=== PATIENT | male | born 1990 | race Caucasian/White ===

== ENCOUNTER 2018-11-18 21:33 | Emergency (ER) | payer OTHER ==
[2018-11-18 22:16] LABS: PLATELET COUNT 293 10^3/uL (150-400)
--- NOTE | 2018-11-18 22:17 | EDPHY ---
H & P Stated Complaint: 7-10 sz while in the skilled nursing. found under a chair per staff, no post ictal pha Time Seen by Provider: 11/18/18 22:00 HPI/ROS: Chief Complaint: Seizure HPI: 28-year-old male being brought in from the skilled nursing for possible seizure. Patient states that he has not been eating or drinking last few days. He was feeling lightheaded so ago off his top bunk. He was sitting in the chair in front of cell. Next seen knew he was on the floor. Uncertain with a a seizure or he had a syncopal episode. Patient was not confused afterwards per bystanders. There is some report he had 7-10 seizures today however the patient is reporting this. I do not have any cooperating information otherwise. Patient denies seizures in the past. No medical problems. No fevers or chills. No cough. He did his head on his bunk 2 days ago. Did not have a loss of consciousness at that time. ROS: 10 systems were reviewed and were negative except those elements noted in the HPI. PMH: Inactive TB Social History: Positive smoking, no alcohol, no recreational drug use Family History: non-contributory Physical Exam: Gen: Awake, Alert, No Distress HEENT: Nose: no rhinorrhea Eyes: PERRLA, EOMI Mouth: Moist mucosa Neck: Supple, no JVD Chest: nontender, lungs clear to auscultation Heart: S1, S2 normal, no murmur Abd: Soft, non-tender, no guarding Back: no CVA tenderness, no midline tenderness Ext: no edema, non-tender Skin: no rash Neuro: CN II-XII intact, Sensation grossly intact, Strength 5/5 in bilateral upper and lower extremities - Personal History Current Tetanus/Diphtheria Vaccine: Yes Current Tetanus Diphtheria and Acellular Pertussis (TDAP): Yes - Medical/Surgical History Hx Asthma: No Hx Chronic Respiratory Disease: No Hx Diabetes: No Hx Cardiac Disease: No Hx Renal Disease: No Hx Cirrhosis: No Hx Alcoholism: No Hx HIV/AIDS: No Hx Splenectomy or Spleen Trauma: No Other PMH: Olayinka MONTOYA AGE 7 FROM VISIT TO [address] [place] [address](NON CONTAGOUS) - Social History Smoking Status: Current every day smoker Constitutional: Initial Vital Signs Temperature (C) 37.9 C 05/07/19 21:40 Heart Rate 66 11/18/18 21:40 Respiratory Rate 18 11/18/18 21:40 Blood Pressure 118/78 11/18/18 21:40 O2 Sat (%) 100 11/18/18 21:40 O2 Delivery Mode Room Air Allergies/Adverse Reactions: No Known Allergies Allergy (Unverified 05/18/11 09:19) Home Medications: Medication Instructions Recorded No Medications [NO HOME 1 ea MISC 05/18/11 MEDICATIONS] Polymyxin B Sulf/Trimethoprim 1 drop LEFTEYE QID #1 btl 05/18/11 [Polytrim Eye Drops] Medical Decision Making - Diagnostics Imaging Results: Imaging Impressions Head CT 11/18/18 22:16 Impression: 1. Normal CT brain without contrast. 2. No hemorrhage or mass effect. Findings and recommendations discussed with Emergency Department physician, Dmitriy Mazariegos MD at 22:46 hour, 11/18/2018. Final report concurs with initial preliminary interpretation. Imaging: Discussed imaging studies w/ computer applications engineer Radiologist ED Course/Re-evaluation: 28-year-old male from the skilled nursing with reported bleed multiple seizures today. No postictal period. CT scan head is negative. Chemistries normal. No acidosis whatsoever. No history of seizures. Patient is otherwise well-appearing. Patient is medically cleared with follow-up as an outpatient, return for any concerns. I do not see any evidence of seizure activity. He is medically cleared for skilled nursing. - Data Points Laboratory Results: Laboratory Results 11/18/18 21:35 11/18/18 21:35 11/18/18 11/18/18 21:35 21:35 WBC 11.59 10^3/uL H 10^3/uL (3.80-9.50) RBC 4.84 10^6/uL 10^6/uL (4.40-6.38) Hgb 14.1 g/dL g/dL (13.7-17.5) Hct 40.9 % % (40.0-51.0) MCV 84.5 fL fL (81.5-99.8) MCH 29.1 pg pg (27.9-34.1) MCHC 34.5 g/dL g/dL (32.4-36.7) RDW 12.5 % % (11.5-15.2) Plt Count 293 10^3/uL 10^3/uL (150-400) MPV 10.4 fL fL (8.7-11.7) Neut % (Auto) 66.8 % % (39.3-74.2) Lymph % (Auto) 25.2 % % (15.0-45.0) Benson % (Auto) 7.3 % % (4.5-13.0) Eos % (Auto) 0.1 % L % (0.6-7.6) Baso % (Auto) 0.3 % % (0.3-1.7) Nucleat RBC Rel Count 0.0 % % (0.0-0.2) Absolute Neuts (auto) 7.75 10^3/uL H 10^3/uL (1.70-6.50) Absolute Lymphs (auto) 2.92 10^3/uL 10^3/uL (1.00-3.00) Absolute Monos (auto) 0.85 10^3/uL H 10^3/uL (0.30-0.80) Absolute Eos (auto) 0.01 10^3/uL L 10^3/uL (0.03-0.40) Absolute Basos (auto) 0.03 10^3/uL 10^3/uL (0.02-0.10) Absolute Nucleated RBC 0.00 10^3/uL 10^3/uL (0-0.01) Immature Gran % 0.3 % % (0.0-1.1) Immature Gran # 0.03 10^3/uL 10^3/uL (0.00-0.10) Sodium 137 mEq/L mEq/L (135-145) Potassium 3.5 mEq/L mEq/L (3.5-5.2) Chloride 102 mEq/L mEq/L (97-110) Carbon Dioxide 25 mEq/l mEq/l (22-31) Anion Gap 10 mEq/L mEq/L (6-14) BUN 7 mg/dL mg/dL (7-23) Creatinine 0.8 mg/dL mg/dL (0.7-1.3) Estimated GFR > 60 Glucose 96 mg/dL mg/dL (70-100) Calcium 9.8 mg/dL mg/dL (8.5-10.4) Departure - Departure Disposition: Home, Routine, Self-Care Clinical Impression: Loss of consciousness Condition: Good Instructions: New-Onset Seizure in Adults (ED) Additional Instructions: Follow up with Neurology for any further concerns of seizure. MEDICALLY CLEAR FOR INTERMEDIATE Referrals: Mario Vines MD [Medical Doctor] - As per Instructions
[2018-11-18 23:25] VITALS: BP 135/77
--- NOTE | 2018-11-20 13:03 | CPEKG ---
Test Reason : Blood Pressure : / mmHG Vent. Rate : 069 BPM Atrial Rate : 069 BPM P-R Int : 124 ms QRS Dur : 091 ms QT Int : 416 ms P-R-T Axes : 015 041 056 degrees QTc Int : 446 ms Sinus rhythm Confirmed by Omid Patle ([id number]) on 11/20/2018 1:02:34 PM Referred By: Dmitriy Mazariegos Confirmed By:Omid Patel
== END 2018-11-18 23:23 | disposition home or self-care (01) ==
LOC: EDUNIT# → EEVIPCON 21:33
DX: R55 Syncope and collapse (principal); R56.9 Unspecified convulsions